=== PATIENT | female | born 1985 | race Caucasian/White ===

== ENCOUNTER 2022-11-11 14:51 | Outpatient (CLI) | payer OTHER, SELFPAY ==
--- NOTE | 2022-11-11 15:00 | CRLHL7_ITS ---
For Patients: As a result of the Century Cures Act, medical imaging exams and procedure reports are released immediately into your electronic medical record. You may view this report before your referring provider. If you have questions, please contact your health care provider. CLINICAL HISTORY: PELVIC AND PERINEAL PAIN TECHNIQUE: 2D miles scale ultrasound. In addition color Doppler and spectral Doppler analysis was performed of the pelvis using a transvaginal approach. FINDINGS: On transvaginal imaging, the myometrium has a normal uniform echotexture. The uterus measures 7.8 x 4.0 x 4.3 cm. The endometrial lining appears normal and measures 5 mm in thickness. The right ovary measures 2.9 x 1.8 x 1.7 cm in size and the left ovary measures 3.2 x 1.3 x 1.8 cm. The ovaries demonstrate normal arterial and venous blood flow on color Doppler and spectral Doppler analysis. There are no suspicious fluid collections within the cul-de-sac. IMPRESSION: Normal pelvic ultrasound. Normal ovaries. No torsion. Dictated by Bashir Frazier MD @ 11/12/2022 6:08:38 AM (Electronically Signed)
== END 2022-11-11 14:52 | disposition home or self-care (01) ==
LOC: US 14:52
PROVIDERS: PCP Family Medicine; Visit Provider Physician Assistant
DX: R10.2 Pelvic and perineal pain (principal)
CPT/HCPCS: 76830; 76856; 93976

== ENCOUNTER 2023-03-30 16:01 | Outpatient (CLI) | payer OTHER, SELFPAY | END 2023-03-30 16:02 | disposition home or self-care (01) | PROVIDERS: PCP Family Medicine; Visit Provider Family Medicine | DX: Z00.00 Encounter for general adult medical examination without abnormal findings (principal); R53.83 Other fatigue; F41.9 Anxiety disorder, unspecified; F32.A Depression, unspecified; M25.50 Pain in unspecified joint; Z13.6 Encounter for screening for cardiovascular disorders | CPT/HCPCS: 80053; 80061; 82306; 82607; 84443 ==

== ENCOUNTER 2025-05-09 10:16 | Outpatient (CLI) | payer OTHER, SELFPAY | END 2025-05-09 10:17 | disposition home or self-care (01) | LOC: FRMREF 10:17 | PROVIDERS: PCP Nurse Practitioner Family; Visit Provider Nurse Practitioner Family | DX: Z11.1 Encounter for screening for respiratory tuberculosis (principal) | CPT/HCPCS: 86480 ==